=== PATIENT | male | born 1950 | race Caucasian/White ===

== ENCOUNTER 2016-06-20 12:11 | Emergency (ER) | payer MEDICAID ==
--- NOTE | 2016-06-20 13:20 | CT REPORT ---
HISTORY: Acute memory loss and visual disturbances. COMPARISON: None TECHNIQUE: Axial CT images were obtained through the head and reformatted in coronal planes without the intraven ous administration of contrast. Dose reduction technique was utilized. FINDINGS: There is mild atrophy in the bilateral frontal lobes, average for the patient's age. There is no acut e infarct, hemorrhage, mass, hydrocephalus or midline shift. There is no acute calvarial fracture. The visualized portions of the paranasal sinuses and the bilate ral mastoid air cells are clear. IMPRESSION: Unremarkable CT head examination Final Electronic Signature: This report was electronically signed by Panchito Kelly MD on 017 1:18 PM. ira /
--- NOTE | 2016-06-20 13:38 | ER PHYSICIAN DOCUMENTATION ---
Physician Documentation [facility] Name:Candido Moran Age:65 yrs Sex:Male :1950 Arrival Date:06/20/2016 Time:12:11 BedTrauma-A Private [facility] ED PhysicianMarin Beach Disposition: 06/20/16 13:25 Discharged to Home/Self Care. Impression: Transient Global Amnesia. - Condition is Good. - Medical Reconciliation form form. - Follow up: [facility]; When: As needed; Reason: Continuance of care. - Problem is new. - Symptoms have improved. HPI: 06/20 12:57 This 65 yrs old Male presents to ER via Private Vehicle with complaints of jm Memory Loss. 12:57 The patient presents to the emergency department with memory issues. . Onset: The jm symptom(s)/episode began/occurred just prior to arrival. Context: occurred while the patient was driving. Associated signs and symptoms: Pertinent positives: visual field changes, pt sees shapes and patterns. , Pertinent negatives: dizziness, headache, seizure, blurred vision. Severity of symptoms: in the emergency department the symptoms have improved markedly. The patient has not experienced similar symptoms in the past. Pt was driving then suddenly he forgot things. He forgot where he was going or why day it was, He even forgot who he was. This came back enroute to the ER. He is starting to regain memory now. He denies any trauma, weakness, speech problems, numbness, or BLACKWELL. Pt is seeing auras. . Historical: - Allergies: No known drug Allergies; - Home Meds: 1. gabapentin oral 2. Trazodone Oral - PMHx: NONE; ETOH; - PSHx: None; - Tetanus: < 10 years. - Ebola Screening: : Patient denies exposure to infectious person. Patient denies travel to an Ebola-affected area in the 21 days before illness onset. . - Social history: Smoking status: Patient states was never smoker of tobacco. Patient/guardian denies using alcohol, marijuana. ROS: 13:05 Constitutional: Negative for fatigue, fever. jm 13:05 Eyes: Positive for visual disturbance, Negative for blurry vision, vision loss. 13:05 Cardiovascular: Negative for chest pain. 13:05 Respiratory: Negative for shortness of breath. 13:05 Abdomen/GI: Negative for nausea, vomiting. 13:05 MS/extremity: Negative for tenderness. 13:05 Neuro: Positive for memory loss. Exam: 13:11 Constitutional: The patient appears alert, awake, comfortable. 13:11 Head/face: Exam is negative for acute changes, obvious evidence of injury or deformity, Basilar skull fracture findings: the patient does not have obvious signs of a basilar skull fracture. 13:11 Eyes: Periorbital structures: appear normal, Pupils: equal, round, and reactive to light and accomodation, Extraocular movements: intact throughout. 13:11 Neck: Exam negative for bruits, Thyroid: appears normal. 13:11 Cardiovascular: Rate: normal, Rhythm: regular. 13:11 Respiratory: the patient does not display signs of respiratory distress, Respirations: normal. 13:11 Back: pain, is absent, CVA tenderness, is absent. 13:11 Musculoskeletal/extremity: Circulation is intact in all extremities. Weight bearing: able to fully bear weight. 13:11 Skin: Appearance: Color: pink, no rash present. 13:11 Neuro: Mentation: is normal, Memory: immediate memory is intact, remote memory is intact. recent memory is impaired, Cerebellar function: normal finger to nose testing, Motor: strength is 5/5 in all extremities, Sensation: is normal, Gait: is steady. 13:11 Psych: Behavior/mood is pleasant, cooperative, Affect is calm. Vital Signs: 12:29 BP 143 / 97; Pulse 76; Resp 20; Pulse Ox 91% on R/A; Pain 0/10; st 12:45 BP 113 / 80; Pulse 72; Pulse Ox 93% on R/A; Pain 0/10; st 13:00 BP 125 / 85; Pulse 71; Resp 15; Pulse Ox 92% ; st NIH Stroke Scale Scores: 12:23 NIHSS Score: 0 st MDM: 12:30 Patient medically screened. 13:12 Neurological re-evaluation: normal neurological exam including cranial nerves, jm orientation, mentation, motor and sensory exam, cerebellar testing, GCS normal, and normal gait. Data reviewed: vital signs, nurses notes, radiologic studies, and as a result, I will discharge patient. Counseling: I had a detailed discussion with the patient and/or guardian regarding: the historical points, exam findings, and any diagnostic results supporting the discharge/admit diagnosis, radiology results, the need for outpatient follow up, with the patient's primary care provider. 14:56 ED course: CT normal. Pt slowly regained his memory during his ED stay. Pt given hand jm out on TGA, which I feel is his dx. . 06/20 13:22 Order name: CAT SCAN; HEAD W/O CON [id number] EDMS Dispensed Medications: No medications were administered NIH Stroke Scale - NIH Stroke Score Date: 06/20/2016 Time: 12:23 Total Score = 0 1a. Level of Consciousness (LOC) - 0(Alert) 1b. Level of Consciousness (LOC) (Year & Age) - 0(Both) 1c. LOC Commands (Open & Closes Eyes/Sausage Machine Operator) - 0(Both) 2. Best Gaze (Lateral Gaze Paresis) - 0(Normal) 3. Visual Field Loss - 0(No visual loss) 4. Facial Palsy - 0(Normal) 5a. Left Arm: Motor (10-second hold) - 0(No drift) 5b. Right Arm: Motor (10-second hold) - 0(No drift) 6a. Left Leg: Motor (5-second hold ? always test supine) - 0(No drift) 6b. Right Leg: Motor (5-second hold ? always test supine) - 0(No drift) 7. Limb Ataxia (finger/nose & heel/green ? test with eyes open) - 0(Absent) 8. Sensory Loss (pinprick arms/legs/face) - 0(Normal) 9. Best Language: Aphasia (description/naming/reading) - 0(No aphasia) 10. Dysarthria (speech clarity ? read or repeat words) - 0(Normal) 11. Extinction and Inattention (visual/tactile/auditory/spatial/personal) - 0(No abnormality) Initials: st Signatures: Rebecca Francisco RN RN Marin Norton MD MD jm
--- NOTE | 2016-06-20 13:38 | ER NURSING DOCUMENTATION ---
Nurse's Notes [facility] ([place], [place]) Name:Candido Moran Age:65 yrs Sex:Male :1950 Arrival Date:06/20/2016 Time:12:11 BedTrauma-A Private [facility] Diagnosis:Transient Global Amnesia Presentation: 06/20 12:23 Presenting complaint: Patient states: pt states he had some troubles remembering what st he was doing just prior to arrival. pt states that he was going some were to ask some one something but can't rememmber what he needed to ask. He also states he can't remember where his 17 year old daughter is. pt also states this all started with seeing "crystals across" his vision. Transition of care: Home. Time Last Known Well for patient was pt does not think it has been very long. no other source of time period. 12:23 Acuity: NORAH 2 st 12:23 Method Of Arrival: Private Vehicle st Triage Assessment: 12:27 The onset of the patients symptoms was less than three hours ago. General: Appears in st no apparent distress, Behavior is agitated, anxious, cooperative. Pain: Denies pain. EENT: Eyes no abnormalities noted.. Reports visual oras that continue and change. currently pt is seeing circles. . Neuro: Level of Consciousness is awake, alert, Oriented to person, place, time, event, Suede Cleaner are equal bilaterally Moves all extremities. Gait is steady, Speech is normal, Facial symmetry appears normal, Pupils are PERRLA, Reports visual oras. and troubles remebering.. Cardiovascular: No deficits noted. Respiratory: No deficits noted. GI: No deficits noted. Historical: - Allergies: No known drug Allergies; - Home Meds: 1. gabapentin oral 2. Trazodone Oral - PMHx: NONE; ETOH; - PSHx: None; - Tetanus: < 10 years. - Ebola Screening: : Patient denies exposure to infectious person. Patient denies travel to an Ebola-affected area in the 21 days before illness onset. . - Social history: Smoking status: Patient states was never smoker of tobacco. Patient/guardian denies using alcohol, marijuana. Screenin:30 Infectious Disease Risk None. Abuse screen: Denies threats or abuse. Denies injuries st from another. pt states he feels safe at home. Nutritional screening: No deficits noted. Assessment: 13:17 General: pt states his vision seems back to normal now. . st Vital Signs: 12:29 BP 143 / 97; Pulse 76; Resp 20; Pulse Ox 91% on R/A; Pain 0/10; st 12:45 BP 113 / 80; Pulse 72; Pulse Ox 93% on R/A; Pain 0/10; st 13:00 BP 125 / 85; Pulse 71; Resp 15; Pulse Ox 92% ; st NIH Stroke Scale Scores: 12:23 NIHSS Score: 0 st ED Course: 12:13 Patient arrived in ED. ama 12:13 [facility] is Private Physician. ama 12:15 Rebecca Francisco, RN is Primary Nurse. st 12:[address] 12:30 [place] MD is Attending Physician. 12:30 Valuables Remains with patient Patient has correct armband on for positive st identification. Placed in gown. Bed in low position. Call light in reach. Side rails up X 1. compliance monitor on. Pulse ox on. NIBP on. 12:[address] myrna 12:46 Patient moved back from CT. myrna 13:14 Assisted to bathroom. pt walked at a brisk pace without any troubles. st 13:24 [facility] is Referral Physician. tao Administered Medications: No medications were administered Outcome: 13:25 Discharge ordered by . tao 13:36 Discharged to home ambulatory. st 13:36 Condition: improved 13:36 Discharge instructions given to patient, Instructed on discharge instructions, follow up and referral plans. 13:37 [address] the ED[address] st 06/21 09:49 Discharge F/U Call: Spoke with: patient. other: Name: pt states he has no more memory st troubles however he feels very anxious and stressed. pt has plans to fallow up with his PCP to continue to work on this. NIH Stroke Scale - NIH Stroke Score Date: 06/20/2016 Time: 12:23 Total Score = 0 1a. Level of Consciousness (LOC) - 0(Alert) 1b. Level of Consciousness (LOC) (Year & Age) - 0(Both) 1c. LOC Commands (Open & Closes Eyes/Subway Repair Supervisor) - 0(Both) 2. Best Gaze (Lateral Gaze Paresis) - 0(Normal) 3. Visual Field Loss - 0(No visual loss) 4. Facial Palsy - 0(Normal) 5a. Left Arm: Motor (10-second hold) - 0(No drift) 5b. Right Arm: Motor (10-second hold) - 0(No drift) 6a. Left Leg: Motor (5-second hold ? always test supine) - 0(No drift) 6b. Right Leg: Motor (5-second hold ? always test supine) - 0(No drift) 7. Limb Ataxia (finger/nose & heel/green ? test with eyes open) - 0(Absent) 8. Sensory Loss (pinprick arms/legs/face) - 0(Normal) 9. Best Language: Aphasia (description/naming/reading) - 0(No aphasia) 10. Dysarthria (speech clarity ? read or repeat words) - 0(Normal) 11. Extinction and Inattention (visual/tactile/auditory/spatial/personal) - 0(No abnormality) Initials: st Signatures: Rebecca Francisco RN RN st Meyer, John, MD MD jm Abbott, Kj Ford, Bo Reg ama
== END 2016-06-20 13:38 | disposition home or self-care (01) ==
LOC: ER 12:11
DX: G45.4 Transient global amnesia (principal); H53.8 Other visual disturbances; R29.700 NIHSS score 0; Z79.899 Other long term (current) drug therapy
CPT/HCPCS: 70450; 99284